=== PATIENT | female | born 1950 | race Caucasian/White ===

== ENCOUNTER 2024-03-15 09:00 | Day surgery (SDC) | payer MEDICARE ==
[2024-03-12 13:32] VITALS: BMI 21.8
[2024-03-15] MEDS ORDERED: PROPOFOL 20 ML ONE (10:34)
[2024-03-15] MEDS ORDERED: fentaNYL 50 mcg/mL 1 mL Vial ONE (10:34)
[2024-03-15] MEDS ORDERED: Rocuronium Bromide 10 MG/ML (10ML VIAL) ONE (10:34)
[2024-03-15] MEDS ORDERED: Lidocaine 1% PF 5 ML VIAL ONE (10:34)
[2024-03-15] MEDS ORDERED: ceFOXitin 1 GM VIAL ONE (10:35)
[2024-03-15] MEDS ORDERED: Bupivacaine/Epinephrine 0.25% 30 ML VIAL ONE (10:36)
[2024-03-15] MEDS ORDERED: Triple Antibiotic Oint 1 GM Packet ONE (10:36)
[2024-03-15] MEDS ORDERED: Ondansetron PF 4 MG/2 ML Vial ONE (11:03)
[2024-03-15] MEDS ORDERED: Dexamethasone 4 mg/ml Vial ONE (11:03)
[2024-03-15] MEDS ORDERED: Promethazine HCl 25 MG/ML VIAL ONE (11:45)
[2024-03-15 12:11] LABS: #Basophils 0.02 10x3/uL (0.0-0.2); #Eosinophils 0.11 10x3/uL (0.0-0.5); #Monocytes 0.68 10x3/uL (0.0-1.1); #Neutrophils 2.99 10x3/uL (1.5-8.4); %Basophils 0.3 % (0.0-2.0); %Eosinophils 1.5 % (0.0-6.0); %Lymphocytes 48.1 % (18.0-47.0); %Monocytes 9.2 % (0.0-10.0); %Neutrophils 40.4 % (40.0-75.0); Hematocrit 21.6 % (34.9-44.5); Hemoglobin 6.6 g/dL (12.0-15.5); Mean Corpuscular HGB CONC 30.6 g/dL (32.0-36.0); Mean Corpuscular Hemoglobin 24.1 pg (27.0-33.0); Mean Corpuscular Volume 78.8 fL (81.6-98.3); Mean Platelet Volume 8.5 fL (7.4-10.4); Platelet Count 384 10x3/uL (150-450); RBC Distribution Width 14.4 % (11.5-14.5); Red Blood Cell (RBC) Count 2.74 10x6/uL (3.90-5.03); White Blood Cell (WBC) Count 7.4 10x3/uL (3.5-10.5)
[2024-03-15] MEDS ORDERED: HYDROcodone/Acetaminophen 5/325 mg Tablet ONE (12:45)
== END 2024-03-15 14:12 | disposition home or self-care (01) ==
LOC: CSHSDC 09:00
PROVIDERS: ATTEND Surgery
PROC: 06BY0ZC Excision of Hemorrhoidal Plexus, Open Approach (ICD-10-PCS; principal; 2024-03-15)
DX: K64.2 Third degree hemorrhoids (principal); I10 Essential (primary) hypertension; F41.9 Anxiety disorder, unspecified; F32.9 Major depressive disorder, single episode, unspecified; Z79.899 Other long term (current) drug therapy
CPT/HCPCS: 36430; 46947; 85025; 86850; 86900; 86901; 86920; J0694; J1100; J2405; J2550; J2704; J3010; P9016; 36415; 88304